=== PATIENT | female | born 1995 | race Hispanic/Latino ===

== ENCOUNTER 2018-01-22 08:01 | Emergency (ER) | payer BC ==
[~2018-01-22] VITALS: Ht 160 cm; Wt 95.3 kg
[2018-01-22] MEDS ORDERED: PENICILLIN G BENZATHINE LA 1.2 MU TBX IM STA (08:43)
[2018-01-22 08:59] VITALS: BP 132/72
== END 2018-01-22 09:00 | disposition home or self-care (01) ==
LOC: FSED 08:01
DX: J02.0 Streptococcal pharyngitis (principal)
CPT/HCPCS: 83518; 96372; 99282; J0561